=== PATIENT | female | born 1930 | race Caucasian/White ===

== ENCOUNTER 2016-06-28 21:00 | Inpatient (IN) | payer MEDICARE, BC ==
[2016-06-28] MEDS ORDERED: MORPHINE SULFATE 4 MG/ML SYRINGE IV STA (21:37)
[2016-06-28] MEDS ORDERED: ONDANSETRON 4 MG/2 ML VIAL IVP STA (21:51)
[2016-06-28] MEDS ORDERED: SODIUM CHLORIDE 0.9% 500 ML IV STA (21:55)
--- NOTE | 2016-06-28 22:54 | XR ---
EXAM: XR Left Femur, 2 Views CLINICAL HISTORY: Reason: fall TECHNIQUE: Frontal and lateral views of the left femur. COMPARISON: 06/28/2016 FINDINGS: Bones/joints: Acute overriding subtrochanteric fracture of the left proximal femur and fracture of the lesser trochanter. Left total knee arthroplasty. Soft tissues: Unremarkable. IMPRESSION: Acute overriding subtrochanteric fracture of the left proximal femur and fracture of the lesser trochanter.
[2016-06-28 22:57] LABS: Anisocytosis Moderate; CHCM 30.3; HCT 25.5 % (34.0-46.0); HDW 2.71; Hypochromasia Marked; MCH 25.8 pg (25.0-35.0); MCHC 31.2 g/dL (31.0-37.0); MCV 82.6 fL (80.0-100.0); Mean Platelet Volume 6.5; Microcytosis Slight; RBC 3.09 m/uL (3.80-5.40); RDW 21.1 % (11.5-15.5); WBC 7.7 k/uL (3.8-10.6); WBC (Perox) 7.52
--- NOTE | 2016-06-28 22:57 | XR ---
EXAM: XR Chest, 1 View CLINICAL HISTORY: Reason: operative clearance TECHNIQUE: Frontal view of the chest. COMPARISON: No relevant prior studies available. FINDINGS: Lungs: Nonspecific opacity in the right lower lung may be infectious or inflammatory. A pulmonary contusions is felt to be less likely. Bilateral pulmonary hyperinflation. Pleural space: Unremarkable. No pneumothorax. Heart: Stable cardiomediastinal silhouette. Mediastinum: See above. Bones/joints: Left lateral rib fractures. Right shoulder arthroplasty. Tubes, lines and devices: Stable left chest wall pacemaker. IMPRESSION: 1. Nonspecific opacity in the right lower lung may be infectious or inflammatory. A pulmonary contusions is felt to be less likely. Interval follow-up is recommended to document resolution. 2. Left lateral rib fractures. Consider correlation with point tenderness. No pneumothorax or significant pleural effusion.
[2016-06-28 22:58] LABS: Basophils % (A) 0 %; Eosinophils # (A) 0.2 k/uL (0-0.7); Eosinophils % (A) 2 %; Luc # (Auto) 0.19; Luc % (Auto) 3; Lymphocytes # (A) 0.7 k/uL (1.0-4.8); Lymphocytes % (A) 9 %; Monocytes # (A) 0.3 k/uL (0-1.0); Monocytes % (A) 4 %; Neutrophils # (A) 6.3 k/uL (1.3-7.7); Neutrophils % (A) 82 %
[2016-06-28 23:12] LABS: INR 1.2 (<1.1); Partial Thromboplastin Time 25.5 sec (22.0-30.0); Prothrombin Time 11.7 sec (9.0-12.0)
[2016-06-28 23:19] LABS: ALT 26 U/L (9-52); AST 21 U/L (14-36); Alkaline Phosphatase 63 U/L (38-126); Anion Gap 5 mmol/L; Blood Urea Nitrogen 18 mg/dL (7-17); Calcium 7.9 mg/dL (8.4-10.2); Carbon Dioxide 23 mmol/L (22-30); Chloride 107 mmol/L (98-107); Glucose 111 mg/dL (74-99); Non-African American GFR(MDRD) >60 (>60 ml/min/1.73 sqM); Potassium 4.3 mmol/L (3.5-5.1); Sodium 135 mmol/L (137-145); Total Bilirubin 0.5 mg/dL (0.2-1.3); Total Protein 5.3 g/dL (6.3-8.2)
[2016-06-28 23:22] LABS: Creatine Kinase 121 U/L (30-135)
[2016-06-28] MEDS ORDERED: ONDANSETRON 4 MG/2 ML VIAL IVP PRN (23:31)
[2016-06-28] MEDS ORDERED: NALOXONE 0.4 MG/ML 1 ML VIAL IV PRN (23:31)
[2016-06-28] MEDS ORDERED: LORazepam 2 MG/ML SYRINGE IV PRN (23:31)
[2016-06-28] MEDS ORDERED: ACETAMINOPHEN TAB 325 MG TAB PO PRN (23:31)
[2016-06-28] MEDS ORDERED: MORPHINE SULFATE 4 MG/ML SYRINGE IV PRN (23:31)
[2016-06-28 23:35] LABS: Troponin I <0.012 ng/mL (0.000-0.034)
--- NOTE | 2016-06-28 23:36 | ED ---
Lower Extremity Injury HPI - General Chief Complaint: Extremity Injury, Lower Stated Complaint: Fall/Leg injury Time Seen by Provider: 06/28/16 21:21 Source: patient, EMS Mode of arrival: EMS - Related Data Home Medications Medication Instructions Recorded Confirmed Atorvastatin [Lipitor] 10 mg PO DAILY 01/16/16 02/06/16 Enalapril [Vasotec] 10 mg PO PC-LUNCH 01/16/16 02/06/16 Pregabalin [Lyrica] 75 mg PO HS 01/16/16 02/06/16 Aspirin EC [Ecotrin Low Dose] 81 mg PO DAILY 02/06/16 02/06/16 metFORMIN HCL ER [Glucophage Xr] 500 mg PO DAILY 02/06/16 02/06/16 Previous Rx's Medication Instructions Recorded Acetaminophen Tab [Tylenol] 650 mg PO Q6HR PRN #0 tab 02/08/16 Aspirin 81 mg PO DAILY chew 02/08/16 Cephalexin [Keflex] 500 mg PO AC-TID #15 capsule 02/08/16 metFORMIN HCL [Glucophage] 500 mg PO AC-BRKFST tab 02/08/16 Allergies Allergy/AdvReac Type Severity Reaction Status Date / Time latex Allergy Rash/Hives Verified 06/28/16 21:11 Review of Systems ROS Statement: Those systems with pertinent positive or pertinent negative responses have been documented in the HPI. ROS Other: All systems not noted in ROS Statement are negative. Past Medical History Past Medical History: Diabetes Mellitus, Hyperlipidemia, Hypertension, Osteoarthritis (OA) History of Any Multi-Drug Resistant Organisms: None Reported Past Surgical History: Orthopedic Surgery, Pacemaker, Tonsillectomy Additional Past Surgical History / Comment(s): bilateral total knee replacements , total right shoulder replacement Past Anesthesia/Blood Transfusion Reactions: No Reported Reaction Type of Cardiac Device: Permanent Pacemaker Device Placement Date:: 01/17/2016 Past Psychological History: No Psychological Hx Reported Smoking Status: Former smoker Past Alcohol Use History: None Reported Past Drug Use History: None Reported - Past Family History Father Family Medical History: Myocardial Infarction ([place]) Additional Family Medical History / Comment(s): Dad passed of [place] Mother Family Medical History: Cancer Additional Family Medical History / Comment(s): Stomach [place] Sister(s) Family Medical History: Myocardial Infarction ([place]) Additional Family Medical History / Comment(s): Both sisters had [place] Course Vital Signs 06/28/16 06/28/16 21:08 22:31 Temperature 98.4 F Pulse Rate 61 71 Respiratory 18 18 Rate Blood Pressure 116/55 123/68 O2 Sat by Pulse 96 100 Oximetry Medical Decision Making - Lab Data Result diagrams: 06/28/16 22:39 06/28/16 22:39 Lab Results 06/28/16 06/28/16 06/28/16 Range/Units 22:39 22:39 22:39 WBC 7.7 (3.8-10.6) k/uL RBC 3.09 L (3.80-5.40) m/uL Hgb 8.0 L (11.4-16.0) gm/dL Hct 25.5 L (34.0-46.0) % MCV 82.6 (80.0-100.0) fL MCH 25.8 (25.0-35.0) pg MCHC 31.2 (31.0-37.0) g/dL RDW 21.1 H (11.5-15.5) % Plt Count 274 (150-450) k/uL Neutrophils % 82 % Lymphocytes % 9 % Monocytes % 4 % Eosinophils % 2 % Basophils % 0 % Neutrophils # 6.3 (1.3-7.7) k/uL Lymphocytes # 0.7 L (1.0-4.8) k/uL Monocytes # 0.3 (0-1.0) k/uL Eosinophils # 0.2 (0-0.7) k/uL Basophils # 0.0 (0-0.2) k/uL Hypochromasia Marked Anisocytosis Moderate Microcytosis Slight PT (9.0-12.0) sec INR (<1.1) APTT (22.0-30.0) sec Sodium 135 L (137-145) mmol/L Potassium 4.3 (3.5-5.1) mmol/L Chloride 107 (98-107) mmol/L Carbon Dioxide 23 (22-30) mmol/L Anion Gap 5 mmol/L BUN 18 H (7-17) mg/dL Creatinine 0.71 (0.52-1.04) mg/dL Est GFR (MDRD) Af Amer >60 (>60 ml/min/1.73 sqM) Est GFR (MDRD) Non-Af >60 (>60 ml/min/1.73 sqM) Glucose 111 H (74-99) mg/dL Calcium 7.9 L (8.4-10.2) mg/dL Total Bilirubin 0.5 (0.2-1.3) mg/dL AST 21 (14-36) U/L ALT 26 (9-52) U/L Alkaline Phosphatase 63 (38-126) U/L Total Creatine Kinase 121 (30-135) U/L CK-MB (CK-2) 2.0 (0.0-2.4) ng/mL CK-MB (CK-2) Rel Index 1.7 Troponin I <0.012 (0.000-0.034) ng/mL Total Protein 5.3 L (6.3-8.2) g/dL Albumin 2.9 L (3.5-5.0) g/dL Urine Color Urine Appearance (Clear) Urine pH (5.0-8.0) Ur Specific [place] (1.001-1.035) Urine Protein (Negative) Urine Glucose (UA) (Negative) Urine Ketones (Negative) Urine Blood (Negative) Urine Nitrite (Negative) Urine Bilirubin (Negative) Urine Urobilinogen (<2.0) mg/dL Ur Leukocyte Esterase (Negative) Urine RBC (0-5) /hpf Urine WBC (0-5) /hpf Ur Squamous Epith Cells (0-4) /hpf Urine Bacteria (None) /hpf Hyaline Casts (0-2) /lpf Urine Mucus (None) /hpf 06/28/16 06/28/16 Range/Units 22:39 22:39 WBC (3.8-10.6) k/uL RBC (3.80-5.40) m/uL Hgb (11.4-16.0) gm/dL Hct (34.0-46.0) % MCV (80.0-100.0) fL MCH (25.0-35.0) pg MCHC (31.0-37.0) g/dL RDW (11.5-15.5) % Plt Count (150-450) k/uL Neutrophils % % Lymphocytes % % Monocytes % % Eosinophils % % Basophils % % Neutrophils # (1.3-7.7) k/uL Lymphocytes # (1.0-4.8) k/uL Monocytes # (0-1.0) k/uL Eosinophils # (0-0.7) k/uL Basophils # (0-0.2) k/uL Hypochromasia Anisocytosis Microcytosis PT 11.7 (9.0-12.0) sec INR 1.2 (<1.1) APTT 25.5 (22.0-30.0) sec Sodium (137-145) mmol/L Potassium (3.5-5.1) mmol/L Chloride (98-107) mmol/L Carbon Dioxide (22-30) mmol/L Anion Gap mmol/L BUN (7-17) mg/dL Creatinine (0.52-1.04) mg/dL Est GFR (MDRD) Af Amer (>60 ml/min/1.73 sqM) Est GFR (MDRD) Non-Af (>60 ml/min/1.73 sqM) Glucose (74-99) mg/dL Calcium (8.4-10.2) mg/dL Total Bilirubin (0.2-1.3) mg/dL AST (14-36) U/L ALT (9-52) U/L Alkaline Phosphatase (38-126) U/L Total Creatine Kinase (30-135) U/L CK-MB (CK-2) (0.0-2.4) ng/mL CK-MB (CK-2) Rel Index Troponin I (0.000-0.034) ng/mL Total Protein (6.3-8.2) g/dL Albumin (3.5-5.0) g/dL Urine Color Yellow Urine Appearance Clear (Clear) Urine pH 6.5 (5.0-8.0) Ur Specific [place] 1.015 (1.001-1.035) Urine Protein Trace H (Negative) Urine Glucose (UA) Negative (Negative) Urine Ketones Trace H (Negative) Urine Blood Negative (Negative) Urine Nitrite Negative (Negative) Urine Bilirubin Negative (Negative) Urine Urobilinogen <2.0 (<2.0) mg/dL Ur Leukocyte Esterase Small H (Negative) Urine RBC 1 (0-5) /hpf Urine WBC 5 (0-5) /hpf Ur Squamous Epith Cells <1 (0-4) /hpf Urine Bacteria Rare H (None) /hpf Hyaline Casts 37 H (0-2) /lpf Urine Mucus Rare H (None) /hpf - EKG Data -: EKG Interpreted by Ia EKG shows normal: axis (Normal), intervals (The [place] interval is 168 ms. QRS duration 162 ms. QTC is 527 ms.) Rate: normal Interpretation: other (The 12-lead EKG shows what appears to be an atrial sensed and ventricular paced rhythm with a rate of 62 bpm) Disposition Clinical Impression: Closed fracture of left femur Disposition: ADMITTED IP TO THIS HOSP Condition: Poor Referrals: Fran Rodriguez MD [Primary Care Provider] - 1-2 days
[2016-06-28 23:49] LABS: Appearance,Urine Clear (Clear); Bacteria,Urine Rare /hpf; Bilirubin,Urine Negative (Negative); Glucose,Urine (UA) Negative (Negative); Ketones,Urine Trace (Negative); Leukocyte Esterase,Urine Small (Negative); Mucus,Urine Rare /hpf; Nitrite,Urine Negative (Negative); PH, Urine 6.5 (5.0-8.0); Particle Count 2752; Protein,Urine Trace (Negative); RBC,Urine 1 /hpf (0-5); Specific Gravity,Urine 1.015 (1.001-1.035); Squamous Epithelial Cell,Urine <1 /hpf (0-4); UA Billing (MACRO vs. MICRO) MICRO; Urobilinogen,Urine <2.0 mg/dL (<2.0); WBC,Urine 5 /hpf (0-5)
--- NOTE | 2016-06-28 23:57 | P.CONS ---
History of Present Illness - History of Present Illness Chief complaint: Fall with left hip area pain after a fall. History of present illness: Patient apparently was outside earlier today when she was opening a door that the when blew open causing her to fall and suffer a fracture to the left hip. The patient is a patient of Dr. Olivas for whom I am covering this weekend. Past medical history: Patient was hospitalized here back in January 2016. At that time she had a syncopal episode secondary to problems with a pacemaker that required surgical intervention. Also apparently with that fall she had a clavicular fracture. The patient also has history of hypertension and type 2 diabetes. History of cardiac arrhythmias requiring pacemaker in the first place. Previous surgical history that include bilateral knee arthroplasty. ALLERGIES: Latex with rash and hives Home medications: Metformin 500 mg daily. Lyrica 75 mg at bedtime Enalapril 10 mg daily Lipitor 10 mg daily Aspirin 81 mg daily Acetaminophen for pain. Review of systems: Patient declines any history of head injury. No visual disturbances or headache. She denies any chest pain or shortness of breath at this time. No nausea or vomiting. Denies any urinary or bowel symptoms. No leg edema. Social history: Patient is and lives with her spouse who has some dementia. She also has a son that lives out of town. No history of smoking or excessive alcohol usage. Family history: Noncontributory. One son in good health. Physical examination: Patient lying on the stretcher in the emergency room. Alert and oriented responding to questioning appropriately. Vital signs reveal temperature 98.4 with a pulse of 71 and respirations 18. Blood pressure is 123/68 and she is 100% saturated on 2 L nasal cannula. Neck supple without adenopathy or bruits. Lungs are clear to auscultation. Breasts and pelvic exam deferred. Heart tones regular without murmurs. Abdomen is soft and nontender without rebound guarding or masses detected. Extremities revealed some rotation of the left hip associated with pain. Neurologically she is alert. Cranial nerves intact. No focal weakness noted. Laboratory: White count is 7.7 with a hemoglobin of 8.0. MCV is low normal at 82. Platelet count of 274. INR 1.2. Sodium 135 with potassium 4.3. BUN of 18 with creatinine of 0.71 even her GFR greater than 60. Blood sugar of 111. Calcium 7.9. Troponin is less than 0.012 of human low at 2.9. Radiologic studies: 1. Chest x-ray showed nonspecific opacity right lower lung field. There also appeared to be some left lateral rib fractures. 2. Left proximal subtrochanteric fracture of the femur / lesser trochanter. Impressions: 1. Fall associated with left femur fracture. 2. Anemia. Last admission patient's hemoglobin was 9.9. This was in January 2016. Likely chronic anemia aggravated by some blood loss in the hip area. 3. History of previous pacemaker placement for arrhythmia. Likely sick sinus syndrome. 4. Diabetes 5. Hypertension 6. History of previous bilateral knee arthroplasties. Plans: Patient likely is a candidate for surgical repair of the left femur fracture. Orthopedics will be evaluating. Likely will need transfusion prior to surgery. EKG is pending. Past Medical History Past Medical History: Diabetes Mellitus, Hyperlipidemia, Hypertension, Osteoarthritis (OA) History of Any Multi-Drug Resistant Organisms: None Reported Past Surgical History: Orthopedic Surgery, Pacemaker, Tonsillectomy Additional Past Surgical History / Comment(s): bilateral total knee replacements , total right shoulder replacement Past Anesthesia/Blood Transfusion Reactions: No Reported Reaction Type of Cardiac Device: Permanent Pacemaker Device Placement Date:: 01/17/2016 Past Psychological History: No Psychological Hx Reported Smoking Status: Former smoker Past Alcohol Use History: None Reported Past Drug Use History: None Reported - Past Family History Father Family Medical History: Myocardial Infarction ([place]) Additional Family Medical History / Comment(s): Dad passed of [place] Mother Family Medical History: Cancer Additional Family Medical History / Comment(s): Stomach [place] Sister(s) Family Medical History: Myocardial Infarction ([place]) Additional Family Medical History / Comment(s): Both sisters had [place] Medications and Allergies Home Medications Medication Instructions Recorded Confirmed Type Atorvastatin [Lipitor] 10 mg PO DAILY 01/16/16 02/06/16 History Enalapril [Vasotec] 10 mg PO PC-LUNCH 01/16/16 02/06/16 History Pregabalin [Lyrica] 75 mg PO HS 01/16/16 02/06/16 History Aspirin EC [Ecotrin Low Dose] 81 mg PO DAILY 02/06/16 02/06/16 History metFORMIN HCL ER [Glucophage Xr] 500 mg PO DAILY 02/06/16 02/06/16 History Allergies Allergy/AdvReac Type Severity Reaction Status Date / Time latex Allergy Rash/Hives Verified 06/28/16 21:11 Physical Exam Vitals: Vital Signs Temp Pulse Resp BP Pulse Ox 06/28/16 22:31 71 18 123/68 100 06/28/16 21:08 98.4 F 61 18 116/55 96 Intake and Output 06/28/16 06/28/16 06/29/16 14:59 22:59 06:59 Other: Weight 66.224 kg Patient Weight 06/29/16 06:59 Weight 66.224 kg Results CBC & Chem 7: 06/28/16 22:39 06/28/16 22:39 Labs: Abnormal Lab Results - Last 24 Hours (Table) 06/28/16 06/28/16 Range/Units 22:39 22:39 RBC 3.09 L (3.80-5.40) m/uL Hgb 8.0 L (11.4-16.0) gm/dL Hct 25.5 L (34.0-46.0) % RDW 21.1 H (11.5-15.5) % Lymphocytes # 0.7 L (1.0-4.8) k/uL Sodium 135 L (137-145) mmol/L BUN 18 H (7-17) mg/dL Glucose 111 H (74-99) mg/dL Calcium 7.9 L (8.4-10.2) mg/dL Total Protein 5.3 L (6.3-8.2) g/dL Albumin 2.9 L (3.5-5.0) g/dL
[2016-06-29 01:34] VITALS: BMI 27.6
[2016-06-29] MEDS: SODIUM CHLORIDE 0.9% 1,000 ML IV SCH ×2 (02:25→21:21)
[2016-06-29] MEDS: HYDROmorphone 1 MG/ML 1 ML SYRINGE IV PRN ×4 (06:20→23:55)
[2016-06-29 07:01] LABS: Glucose,Whole Blood 183 mg/dL (75-99)
[2016-06-29] MEDS ORDERED: metFORMIN 500 MG TAB PO SCH ×2 (07:30)
[2016-06-29] MEDS ORDERED: CEPHALEXIN 500 MG CAP PO SCH (07:30)
[2016-06-29 07:39] LABS: Anisocytosis Moderate; Basophils % (A) 1 %; CH 25.2; CHCM 30.4; Eosinophils % (A) 1 %; HCT 22.6 % (34.0-46.0); HDW 2.77; HGB 7.1 gm/dL (11.4-16.0); Hypochromasia Moderate; Luc % (Auto) 4; Lymphocytes # (A) 0.7 k/uL (1.0-4.8); Lymphocytes % (A) 15 %; MCHC 31.3 g/dL (31.0-37.0); Mean Platelet Volume 6.8; Microcytosis Slight; Monocytes # (A) 0.3 k/uL (0-1.0); Monocytes % (A) 7 %; Neutrophils # (A) 3.5 k/uL (1.3-7.7); Neutrophils % (A) 73 %; RBC 2.72 m/uL (3.80-5.40); RDW 20.6 % (11.5-15.5); WBC 4.8 k/uL (3.8-10.6); WBC (Perox) 5.05
--- NOTE | 2016-06-29 08:38 | P.HPOR ---
History of Present Illness H&P Date: 06/29/16 Chief Complaint: Left leg pain The patient is an 86-year-old female with multiple medical problems including chronic anemia, diabetes, and having a pacemaker who sustained a low-energy fall yesterday when a door blew open. She had immediate pain in her left hip. She was brought to an outside emergency department where x-rays showed a significantly displaced subtrochanteric femur fracture. She also has a history of several total knee replacement surgeries including a revision all done by Dr. Sims. The ER here at [facility] accepted the patient as a transfer without contacting me. Apparently there was no attempt to contact Dr. Sims who has performed multiple procedures on this patient and is supposedly a hip and knee specialist. I was contacted while the patient was in the ER here and told she had a "intertrochanteric hip fracture" with no mention of the revision total knee prosthesis or that she had multiple surgeries on her knee. This morning she is complaining of isolated pain in her left hip. She says that she lives at home with her . She is a community ambulator at baseline. She denies any pre-existing left hip pain. Past Medical History Past Medical History: Diabetes Mellitus, Hyperlipidemia, Hypertension, Osteoarthritis (OA) History of Any Multi-Drug Resistant Organisms: None Reported Past Surgical History: Orthopedic Surgery, Pacemaker, Tonsillectomy Additional Past Surgical History / Comment(s): bilateral total knee replacements , total right shoulder replacement Past Anesthesia/Blood Transfusion Reactions: No Reported Reaction Type of Cardiac Device: Permanent Pacemaker Device Placement Date:: 01/17/2016 Past Psychological History: No Psychological Hx Reported Smoking Status: Former smoker Past Alcohol Use History: None Reported Past Drug Use History: None Reported - Past Family History Father Family Medical History: Myocardial Infarction ([place]) Additional Family Medical History / Comment(s): Dad passed of [place] Mother Family Medical History: Cancer Additional Family Medical History / Comment(s): Stomach [place] Sister(s) Family Medical History: Myocardial Infarction ([place]) Additional Family Medical History / Comment(s): Both sisters had [place] Medications and Allergies Home Medications Medication Instructions Recorded Confirmed Type Atorvastatin [Lipitor] 10 mg PO DAILY 01/16/16 02/06/16 History Enalapril [Vasotec] 10 mg PO PC-LUNCH 01/16/16 02/06/16 History Pregabalin [Lyrica] 75 mg PO HS 01/16/16 02/06/16 History Aspirin EC [Ecotrin Low Dose] 81 mg PO DAILY 02/06/16 02/06/16 History metFORMIN HCL ER [Glucophage Xr] 500 mg PO DAILY 02/06/16 02/06/16 History Allergies Allergy/AdvReac Type Severity Reaction Status Date / Time latex Allergy Rash/Hives Verified 06/29/16 02:59 Physical Examination The patient is resting comfortably in her bed. She is in moderate distress due to her left hip. She is alert and able to answer questions. Her head is normocephalic and atraumatic. She has no cervical spine tenderness. She demonstrates nonlabored breathing with symmetric chest expansion. Her abdomen is obese but nontender. She has no obvious deformities in her upper extremities and right lower extremities and no tenderness to palpation in her upper extremities and right lower extremity. A focused exam the left leg was conducted. On inspection of the left leg she has a healed anterior knee incision from revision total knee surgery. There are no open wounds over the lateral aspect of the hip. Her thigh is soft. She has no tenderness over her knee. She has no tenderness down her leg. Sensation is intact to light touch over the dorsum of the foot, first webspace, and plantar aspect of the foot. She is able to actively plantarflex and dorsiflex her ankle and her toes. She has no pain with passive range of motion of her toes. Results X-rays of the left hip from an outside hospital and full-length femur films from our ER show a long, displaced subtrochanteric femur fracture. There is a revision total knee prosthetic with a long stem, cement mantle and cement restrictor extending into the mid diaphysis of the femur. There do not appear to be any fractures around her total knee stem. - Labs Labs: Abnormal Lab Results - Last 24 Hours (Table) 06/29/16 06/29/16 Range/Units 07:00 07:03 RBC 2.72 L (3.80-5.40) m/uL Hgb 7.1 L (11.4-16.0) gm/dL Hct 22.6 L (34.0-46.0) % RDW 20.6 H (11.5-15.5) % POC Glucose (mg/dL) 183 H (75-99) mg/dL H & H 06/29/16 Range/Units 07:03 Hgb 7.1 L (11.4-16.0) gm/dL Hct 22.6 L (34.0-46.0) % Result Diagrams: 06/29/16 07:03 06/28/16 22:39 Assessment and Plan (1) Closed fracture of left femur Status: Acute Plan: The patient is an 86-year-old female with multiple medical problems and a very complicated left hip fracture. The patient has a displaced subtrochanteric femur fracture that ideally should be managed with a long cephalo-medullary device. Unfortunately the patient has a revision total knee replacement with a long stem extending into the femoral diaphysis that prevents the use a long nail. I had a lengthy discussion with the patient this morning on treatment options. My recommendation was to perform an open reduction of her subtrochanteric femur fracture followed by application of a cable to hold the reduction and then placement of an intermediate length cephalo-medullary device. We discussed the potential for fracture around the end of her nail given her poor bone quality and stress riser. She understands this is a potential complication and understands that she has a difficult problem to manage in regards to her hip fracture and revision total knee prosthesis. We discussed all of the potential risks and complications of surgery including but not limited to risk of anesthesia, risk of superficial infection, risk of deep infection, risk of delayed wound healing, risk of wound necrosis, risk of intraoperative fracture, risk of damage to local blood vessels or nerves, risk of postoperative fracture, risk of chronic pain, risk of chronic swelling, risk of inability to regain preinjury level of function, risk of inability to walk following surgery and risk of postoperative medical problems including DVT, PE, pneumonia, pressure sore, stroke, acute coronary event, urinary tract infection , and possibly . The patient understands that she has multiple medical problems that put her at a much higher risk of having surgery. The patient currently has a hemoglobin of 7.1 and is not cleared for surgery. We'll plan on taking the patient to surgery when she is medically optimized, likely tomorrow afternoon. In the interim she is to remain strictly bedrest with no weightbearing on her left leg.
[2016-06-29] MEDS: FAMOTIDINE 20 MG TAB PO SCH ×2 (08:50→20:35)
[2016-06-29] MEDS: diphenhydrAMINE 50 MG/ML 1 ML VIAL IVP PRN (08:50)
[2016-06-29] MEDS ORDERED: ATORVASTATIN 10 MG TAB PO SCH (09:00)
[2016-06-29 09:18] LABS: Manual Review Performed
[2016-06-29] MEDS ORDERED: FUROSEMIDE 10 MG/ML 2 ML VIAL IV ONE (09:24)
--- NOTE | 2016-06-29 10:26 | P.PN ---
Progress Note - Text Patient is an 86-year-old female of Dr. Rodriguez for whom I am covering today. The patient presented yesterday to the emergency room after a fall with a subsequent fracture to the left hip. Patient does have history of previous pacemaker placement. There is also history of diabetes and degenerative joint disease. Yesterday patient also was found to be anemic in the emergency room at 8.0 decreasing to 7.1 this morning. No sign of overt hemorrhage. Patient is alert and oriented. No complaints of chest pain or shortness of breath. Temperature is 96.8 with a pulse of 65 and respirations 16 and nonlabored. Blood pressure is 105/51 and she is 100% saturated on 3 L. Patient complains of being itchy but no definite rash seen. Lung and heart examination clear and regular. Abdomen is soft and nontender. No unusual distal edema. She is alert and oriented. Cranial nerves intact. No focal weakness. Laboratory results: As mentioned hemoglobin this morning is 7.1 with a white count of 4.8 and a platelet count of 273. Blood sugar was 183. Impressions and plans: The patient does have apparent chronic anemia. Further anemia now likely related to blood loss anemia secondary to the hip fracture. Patient will be typed and crossed for 2 units of blood and transfused today with Lasix. Follow- up hemoglobin to be done. Hopefully with further improvement and stabilization patient likely can proceed with the surgery per orthopedics tomorrow. Dr. Rodriguez to resume medical care tomorrow. We will hold the patient's lisinopril and have ordered a urine culture. Patient is at somewhat higher risk in light of her advanced age and comorbidities.
[2016-06-29 11:40] LABS: Glucose,Whole Blood 168 mg/dL (75-99)
[2016-06-29] MEDS ORDERED: LISINOPRIL 20 MG TAB PO SCH (13:30)
[2016-06-29 16:33] LABS: Glucose,Whole Blood 123 mg/dL (75-99)
[2016-06-29] MEDS: metFORMIN 500 MG TAB PO SCH (17:33)
[2016-06-29] MEDS: ATORVASTATIN 10 MG TAB PO SCH (20:34)
[2016-06-29 20:53] LABS: Glucose,Whole Blood 123 mg/dL (75-99)
[2016-06-29] MEDS: PREGABALIN 75 MG CAP PO SCH (21:15)
[2016-06-30] MEDS: diphenhydrAMINE 50 MG/ML 1 ML VIAL IVP PRN (05:58)
[2016-06-30 06:57] LABS: Glucose,Whole Blood 106 mg/dL (75-99)
[2016-06-30 07:12] LABS: Anion Gap 7 mmol/L; Blood Urea Nitrogen 17 mg/dL (7-17); Calcium 8.1 mg/dL (8.4-10.2); Carbon Dioxide 24 mmol/L (22-30); Chloride 105 mmol/L (98-107); Glucose 103 mg/dL (74-99); Non-African American GFR(MDRD) >60 (>60 ml/min/1.73 sqM); Potassium 4.4 mmol/L (3.5-5.1); Sodium 136 mmol/L (137-145)
[2016-06-30] MEDS: HYDROmorphone 1 MG/ML 1 ML SYRINGE IV PRN ×4 (07:23→23:32)
[2016-06-30] MEDS ORDERED: metFORMIN 500 MG TAB PO SCH (07:30)
[2016-06-30 07:36] LABS: Anisocytosis Slight; Basophils % (A) 1 %; CH 26.5; CHCM 31.7; Eosinophils # (A) 0.4 k/uL (0-0.7); Eosinophils % (A) 6 %; HCT 28.8 % (34.0-46.0); HDW 3.48; Hypochromasia Slight; Luc # (Auto) 0.25; Luc % (Auto) 4; Lymphocytes # (A) 0.8 k/uL (1.0-4.8); Lymphocytes % (A) 14 %; MCHC 32.2 g/dL (31.0-37.0); MCV 83.7 fL (80.0-100.0); Mean Platelet Volume 6.7; Microcytosis Slight; Monocytes # (A) 0.5 k/uL (0-1.0); Monocytes % (A) 8 %; Neutrophils % (A) 67 %; Poikilocytosis Slight; RBC 3.43 m/uL (3.80-5.40); RDW 19.7 % (11.5-15.5); WBC (Perox) 6.25
[2016-06-30 07:40] LABS: HGB 9.3 gm/dL (11.4-16.0)
[2016-06-30] MEDS: metFORMIN 500 MG TAB PO SCH ×2 (07:54→16:36)
[2016-06-30] MEDS: FAMOTIDINE 20 MG TAB PO SCH ×2 (07:54→23:33)
[2016-06-30 11:33] LABS: Glucose,Whole Blood 109 mg/dL (75-99)
[2016-06-30] MEDS ORDERED: IV FLUID CONTINUATION 1,000 ML IV ONE (16:15)
[2016-06-30] MEDS ORDERED: ceFAZolin 2 GM in SODIUM CHLORIDE 0.9% 100 ML IVPB STA (16:44)
[2016-06-30] MEDS: LACTATED RINGERS 1,000 ML IV ONE (18:02)
[2016-06-30] MEDS ORDERED: ePHEDrine 50 MG/ML 1 ML AMP ONE (18:04)
[2016-06-30] MEDS ORDERED: fentaNYL (PF) 50 MCG/ML 2 ML AMP ONE (18:04)
[2016-06-30] MEDS ORDERED: KETAMINE 10 MG/ML 20 ML VIAL ONE (18:04)
[2016-06-30] MEDS ORDERED: PROPOFOL 10 MG/ML 20 ML VIAL IV ONE (18:04)
[2016-06-30] MEDS ORDERED: MIDAZOLAM 2 MG/2 ML VIAL ONE (18:04)
[2016-06-30] MEDS ORDERED: LACTATED RINGERS 1,000 ML IV ONE (20:20)
[2016-06-30] MEDS ORDERED: NALOXONE 0.4 MG/ML 1 ML VIAL IV PRN (21:21)
[2016-06-30] MEDS ORDERED: HYDROcodone/APAP 5-325MG 1 EACH TAB PO PRN (21:21)
[2016-06-30 21:36] LABS: Glucose,Whole Blood 133 mg/dL (75-99)
--- NOTE | 2016-06-30 21:50 | P.OP ---
Date of Procedure: 06/30/16 Preoperative Diagnosis: 1. Closed left subtrochanteric femur fracture 2. History of left revision knee arthroplasty with stemmed, cemented femoral component and cement restrictor extending into the femoral diaphysis 3. Osteoporosis 4. Diabetes mellitus type 2 5. Urinary artery disease with a pacemaker 6. Chronic anemia Postoperative Diagnosis: Same Procedure(s) Performed: Operative fixation of left subtrochanteric femur fracture with cephalo- medullary device Implants: Synthes intermediate length TFN nail Anesthesia: spinal Surgeon: Iron Singh Sport Psychologist #1: Martinez Snyder Estimated Blood Loss (ml): 800 IV fluids (ml): 1,350 Urine output (ml): 50 Pathology: none sent Condition: stable Disposition: PACU Indications for Procedure: The patient is an 86-year-old female with multiple medical problems including coronary artery disease with a pacemaker, type 2 diabetes, and osteoporosis who sustained a low-energy fall this past Thursday resulting in an isolated left hip fracture. She was immediately painful left hip and was unable to walk. She was brought to an outside emergency department where x-rays were read as a hip fracture. The outside hospital she was at had no orthopedic coverage. The emergency department and [facility] excepted the patient without contacting me. The patient showed up into the emergency department and was admitted to the floor. I was contacted by the emergency department physician who stated the patient had an intertrochanteric hip fracture with no mention of her prior left knee surgeries. The patient had full length femur films taken in anticipation of lacing a long cephalo-medullary device. The x-rays showed a stemmed revision total knee replacement with a cement mantle extending into the femoral diaphysis. I discussed the case with my partners regarding different surgical fixation options including both operative fixation with an intramedullary hip screw versus a long plate with cables distally around the femoral component. Due to the patient's age and pre-existing medical problems I felt that an intramedullary hip screw would provide the most stable fixation without an extensive surgical approach. I do lengthy discussion with the patient on the potential risks and complications of surgery. She understands that she has a very complicated hip fracture and there is not that easy solution. We discussed potential risks and complications including but certainly not limited to risk of anesthesia, risk of superficial infection, risk of deep infection, risk of delayed wound healing, risk of wound necrosis, risk of intraoperative iatrogenic fracture, risk of postoperative fracture, risk of failure of hardware, risk of fracture nonunion, risk of fracture malunion, risk of damage to local nerves resulting in temporary or permanent numbness or motor weakness, risk of damage to blood vessels resulting in loss of blood supply to the leg, risk of chronic pain, risk of chronic swelling, risk of inability to ambulate, risk of inability to ambulate without assistive device, and risk of postoperative medical problems including DVT, PE, acute coronary event, stroke, pneumonia, urinary tract infection and possibly . The patient understands the need to problems associated with her fracture pattern and her total knee replacement. We discussed that there is a risk that she may fracture at tip of the nail due to the presence of a stress riser. She provided her verbal and written consent to go forward with surgery. She was seen by internal medicine and a verbal clearance was given by Dr. Rodriguez prior to surgery. Description of Procedure: The patient was identified in preoperative holding and the correct left leg was marked with my initials. All the patient's questions were answered and I verified the consent form was signed and represented my proposed surgery. The patient was then brought back to the operating room. She was placed in the lateral decubitus position while on her hospital bed and a spinal anesthetic was administered by anesthesia. The patient was then transferred onto a fracture table. Her right leg was flexed at the hip and knee and placed in a leg og that was well-padded particularly over the popliteal fossa and secured to the leg og with an Florencio wrap. Her left leg was placed in the boot of the fracture table which was well-padded and then secured with Velcro straps and an Florencio wrap. Her perineum was positioned over the peroneal post. Her torso was shifted to the left and her left arm was draped across her body to help facilitate entry point of our nail. Once the patient was secured in the fracture table a gentle closed reduction was attempted using a combination of longitudinal traction, rotation, and abduction and adduction. The fracture was unable to be reduced closed. The patient's left leg was prepped and draped in the standard sterile fashion. Prior to starting surgery timeout was performed identifying the correct patient, operative extremity, and procedure. I began by coming in with C-arm fluoroscopy and marking out the fracture site. A longitudinal incision centered over the lateral aspect of the femur was marked out centered over the fracture. Skin incision was made with a 15 blade scalpel and dissection was carried down carefully through the subcutaneous tissue using electrocautery. The IT band was identified and incised longitudinally in line with the skin incision. The vastus lateralis was then elevated and dissection was carried down to the lateral aspect of the femur. Perforating vessels were controlled with electrocautery. Large consolidating hematoma was removed from the fracture site. There was a long sub-trochanteric fracture. Using a combination of bone hooks and a ball spike pusher the fracture was manipulated until reduction was close. An unscrubbed cardiology physician assistant then made slight adjustments to rotation and the fracture site was clamped with a large Loo reduction clamp. C-arm was brought in to assess reduction. The reduction was attempted multiple times trying to get as close to an anatomic reduction as possible. Due to the configuration of the fracture and the long posterior lesser trochanter fracture I was unable to anatomically clamp the fracture as result decided not to place a cable across the fracture. Once the fracture was assessed to be in satisfactory position a small stab incision was made proximal to the greater trochanter in line with the femur. A guidewire was placed just medial to the tip of the greater trochanter on the AP view and centered with the femoral canal on the lateral view. The guidewire was then driven down to the level of lesser trochanter. A trocar and opening reamer were used to gain entrance to the femoral canal the tip of the greater trochanter. A ball-tipped guidewire was then placed through the previously drilled hole in the tip of the greater trochanter down across the fracture site until it was seated distally against the cement restrictor. An intermediate length 235 mm TFN nail was then dispensed. I verified that the targeting arm and trochars lined up with their appropriate slots on the nail. The nail was then inserted over the guidewire and seated with gentle taps of a mallet until it was fully seated. Progression of the nail was monitored with C-arm fluoroscopy. The tip of the nail rested just proximally to the cement restrictor. The trocar for the helical blade was placed through the targeting arm and down to the lateral aspect of the femur through the previously made incision for the open reduction. A guidewire was placed in the center the femoral head on the AP view and in the center posterior position on the lateral view. The guidewire was measured and then reamed. A 90 mm helical blade was dispensed and tapped into place. The car for the helical blade was then removed after the helical blade was locked proximally. The trocar for the distal interlocking screws placed the targeting arm and a drill was used to drill both cortices. The distal interlocking screw was just distal to the fracture and I was able to get both cortices on the distal shaft fragment. A 44 mm distal interlocking screw was placed. At this point the targeting arm was removed and final fluoroscopy shots were taken. I was happy with position of the hardware and our reduction. At this point both wounds were copiously irrigated. The IT band was closed with a running 0 Vicryl suture. The deep subcu was reapproximated using 0 Vicryl. The official subcu was reapproximated using 2-0 Vicryl. The skin was closed using agnieszka. The more proximal incision was closed with interrupted 2-0 Vicryl and the skin was closed with agnieszka. A sterile dressing consisting of Adaptic, 4 x 4, and sterile Tegaderms was applied. The drapes were taken down. The patient was carefully taken out of the fracture table and transferred onto the [facility]. Once the patient was in the [facility] her thigh and calf on the left leg were soft. Her toes were well perfused with brisk capillary refill. I verified with the behavioral health tech that all instrument sponge and sharp counts were correct. The patient was then brought to PACU. Plan: The patient is going to have her hemoglobin checked in PACU due to her pre -existing chronic anemia low hemoglobin on admission requiring transfusion and amount of blood loss during surgery. She will receive 2 doses of postoperative antibiotics. She is started on DVT prophylaxis with Lovenox. She is going to be admitted for selective care floor overnight for close monitoring. She is to remain strictly nonweightbearing on her left leg.
[2016-06-30 22:01] LABS: Anisocytosis Moderate; Basophils % (A) 0 %; CH 26.6; CHCM 31.9; Eosinophils # (A) 0.2 k/uL (0-0.7); Eosinophils % (A) 2 %; HCT 23.5 % (34.0-46.0); HDW 3.27; Hypochromasia Slight; Luc # (Auto) 0.21; Luc % (Auto) 2; Lymphocytes # (A) 0.6 k/uL (1.0-4.8); Lymphocytes % (A) 7 %; MCH 26.8 pg (25.0-35.0); MCV 83.7 fL (80.0-100.0); Mean Platelet Volume 7.2; Microcytosis Slight; Monocytes # (A) 0.5 k/uL (0-1.0); Monocytes % (A) 5 %; Neutrophils # (A) 8.2 k/uL (1.3-7.7); Neutrophils % (A) 84 %; RBC 2.81 m/uL (3.80-5.40); RDW 20.2 % (11.5-15.5); WBC 9.7 k/uL (3.8-10.6); WBC (Perox) 9.37
[2016-06-30 22:08] LABS: HGB 7.5 gm/dL (11.4-16.0)
--- NOTE | 2016-06-30 23:28 | PN ---
CHIEF COMPLAINT: Re-evaluation. HISTORY OF PRESENT ILLNESS: This elderly female, 86 years of age, was admitted to the hospital with a fractured left hip/femur. The patient is planned for surgery. The patient is actually doing fairly well. She was noted to be anemic. The patient does have chronic anemia with a suspected recent significant blood loss in the left hip area, as the patient has significant swelling in the left thigh area. She has no symptoms of chest pain or shortness of breath. The patient does have a history of recent pneumonia about 3 to 4 weeks ago. No further fever or leukocytosis. The patient's chest x-ray does show some infiltrate in the right lower lung area. REVIEW OF SYSTEMS: NEURO: Denies any headaches, dizziness. PSYCH: No anxiety. CARDIAC: Denies chest pain, angina, palpitation. RESPIRATORY: Denies shortness of breath. Does have some cough. No hemoptysis. GI: No nausea, vomiting, abdominal pain, diarrhea. : No symptoms of dysuria, hematuria. Patient has a Love catheter. EXTREMITIES: Pain in the left hip and upper thigh area. CONSTITUTIONAL: No fever or chills. PHYSICAL EXAMINATION: Pleasant female in no distress. VITAL SIGNS: Blood pressure 128/59, pulse 70, regular. Afebrile. Respiratory rate 20. HEENT: Normocephalic. NECK: Supple. No JVD. Chest examination is clear to auscultation with mild decreased air flow at the bases. CARDIAC: Distant heart sounds. S1, S2 with no gallops. Systolic murmur 2/6, apex. Patient does have a pacemaker. ABDOMEN: Soft. No palpable masses. Bowel sounds normal. No organomegaly. Extremities reveal edema, left thigh. Adequate pedal pulses. NEUROLOGIC: Awake, alert, oriented x3 with well-coordinated movements in both upper extremities. She has no tenderness of the left chest wall. LABORATORY ASSESSMENT: Chest x-ray which showed right lower lobe infiltrate, possible fracture left hip, left lower ribs; however, the ribs are not tender at all. Patient's hemoglobin is 9.3. ASSESSMENT: 1. Fracture, left hip area. 2. Anemia secondary to blood loss. 3. Sick sinus syndrome with a pacemaker. 4. Hypertension. 5. Diabetes mellitus, controlled. 6. Recent pneumonia. Chest x-ray shows residual infiltrate, right lung. PLAN: Continue present medical regimen. Patient is stable to undergo the planned surgical procedure. Patient has some increased risk due to her comorbid conditions; however, the patient has not too many alternatives except surgery for better recovery. Patient's condition discussed with the patient. She is going to require placement for rehab. The patient tells me her son wants to take her down to [place]. This is probably not going to be possible unless the patient is flown down by a private ambulance. Patient may benefit by going into a nursing facility here for rehab, and once she stabilizes, could subsequently go down to [place]. Patient's condition discussed with the patient.
[2016-06-30] MEDS: ATORVASTATIN 10 MG TAB PO SCH (23:33)
[2016-06-30] MEDS: PREGABALIN 75 MG CAP PO SCH (23:33)
[2016-06-30] MEDS: SODIUM CHLORIDE 0.9% 1,000 ML IV SCH (23:34)
[2016-07-01] MEDS: LACTATED RINGERS 1,000 ML IV ONE (00:03)
[2016-07-01] MEDS: ceFAZolin 2 GM in SODIUM CHLORIDE 0.9% 100 ML IVPB SCH ×2 (00:07→07:45)
[2016-07-01] MEDS: HYDROcodone/APAP 5-325MG 1 EACH TAB PO PRN ×4 (02:02→20:44)
[2016-07-01] MEDS: SODIUM CHLORIDE 0.9% 1,000 ML IV SCH (03:02)
[2016-07-01] MEDS: ENOXAPARIN 30 MG/0.3 ML SYRINGE SQ SCH (07:37)
[2016-07-01] MEDS: metFORMIN 500 MG TAB PO SCH ×2 (07:37→17:35)
[2016-07-01] MEDS: FAMOTIDINE 20 MG TAB PO SCH (07:37)
[2016-07-01 07:41] LABS: Glucose,Whole Blood 119 mg/dL (75-99)
--- NOTE | 2016-07-01 07:49 | XR ---
Limited left hip HISTORY: Left hip fracture 5 Intraoperative C-arm images document the procedure.
[2016-07-01 08:30] LABS: Anisocytosis Slight; Basophils % (A) 1 %; CH 26.6; CHCM 31.7; Eosinophils # (A) 0.1 k/uL (0-0.7); Eosinophils % (A) 2 %; HCT 21.2 % (34.0-46.0); HDW 3.26; Hypochromasia Slight; Luc # (Auto) 0.26; Luc % (Auto) 4; Lymphocytes # (A) 0.6 k/uL (1.0-4.8); Lymphocytes % (A) 11 %; MCH 26.8 pg (25.0-35.0); MCHC 31.8 g/dL (31.0-37.0); MCV 84.2 fL (80.0-100.0); Mean Platelet Volume 6.9; Microcytosis Slight; Monocytes # (A) 0.4 k/uL (0-1.0); Monocytes % (A) 8 %; Neutrophils # (A) 4.4 k/uL (1.3-7.7); Neutrophils % (A) 75 %; RBC 2.52 m/uL (3.80-5.40); RDW 19.4 % (11.5-15.5); WBC 5.9 k/uL (3.8-10.6); WBC (Perox) 5.82
[2016-07-01 08:33] LABS: HGB 6.7 gm/dL (11.4-16.0)
[2016-07-01 09:32] LABS: Anion Gap 4 mmol/L; Blood Urea Nitrogen 15 mg/dL (7-17); Calcium 7.6 mg/dL (8.4-10.2); Carbon Dioxide 26 mmol/L (22-30); Chloride 105 mmol/L (98-107); Glucose 115 mg/dL (74-99); Non-African American GFR(MDRD) >60 (>60 ml/min/1.73 sqM); Potassium 4.3 mmol/L (3.5-5.1); Sodium 135 mmol/L (137-145)
--- NOTE | 2016-07-01 10:21 | P.PN ---
Subjective Principal diagnosis: Status post TFN nail for left sub-trochanteric femur fracture Patient is pleasant 86 year old female seen at bedside this morning. She is postop day #1 from left TFN nail for left sub-trochanteric femur fracture performed by Dr. Singh. She is doing fairly well this morning during interview. She has some pain at the surgical site as expected but appears to be controlled with pain medication. Hemoglobin drawn this morning was 6.7 and packed red blood cells have been ordered. Vital signs have remained stable. She denies new lower extremity complaints including numbness, tingling or weakness. She denies calf pain. Review of systems is negative for fever, chills, chest pain, shortness of breath, nausea, vomiting, dizziness, headaches , slurred speech, abdominal pain or other. Objective - Vital Signs Vital signs: Vital Signs Temp 97.4 F L 07/01/16 07:30 Pulse 84 07/01/16 08:00 Resp 16 07/01/16 08:00 BP 138/72 07/01/16 07:30 Pulse Ox 99 07/01/16 07:30 Intake & Output 06/30/16 07/01/16 07/01/16 18:59 06:59 18:59 Intake Total 2050 1050 Output Total 850 1070 Balance 1200 -20 Weight 66.224 kg 66.224 kg Intake: IV 2050 300 Sodium Chloride 0.9% 1, 700 000 ml @ 20 mls/hr IV . Q24H DANNIE Rx#:[id number] Intake, IV Titration 750 Amount Sodium Chloride 0.9% 1, 750 000 ml @ 125 mls/hr IV . Q8H DANNIE Rx#:[id number] Output: Urine 850 270 Uretheral (Love) 850 Estimated Blood Loss 800 Other: Voiding Method Indwelling Catheter Indwelling Catheter Indwelling Catheter - Exam Inspection of the surgical wound is benign. There is no active bleeding, dehiscence or drainage. Neurovascular status is intact with the left lower extremity with motor and sensation to light touch. Calf is soft and nontender. Pulses are 2+ at dorsalis pedis and she has less than 2 second cap refill. Abdomen is soft and nontender. - Constitutional General appearance: Present: no acute distress - Psychiatric Psychiatric: Present: A&O x's 3, appropriate affect, intact judgment & insight - Labs CBC & Chem 7: 07/01/16 07:43 07/01/16 07:43 Labs: Abnormal Lab Results - Last 24 Hours (Table) 06/29/16 06/30/16 06/30/16 Range/Units 07:03 11:30 21:31 RBC 2.81 L (3.80-5.40) m/uL Hgb 7.5 L D (11.4-16.0) gm/dL Hct 23.5 L (34.0-46.0) % RDW 20.2 H (11.5-15.5) % Neutrophils # 8.2 H (1.3-7.7) k/uL Lymphocytes # 0.6 L (1.0-4.8) k/uL Sodium (137-145) mmol/L Glucose (74-99) mg/dL POC Glucose (mg/dL) 109 H (75-99) mg/dL Calcium (8.4-10.2) mg/dL Crossmatch See Detail 06/30/16 07/01/16 07/01/16 Range/Units 21:34 07:33 07:43 RBC 2.52 L (3.80-5.40) m/uL Hgb 6.7 L* (11.4-16.0) gm/dL Hct 21.2 L (34.0-46.0) % RDW 19.4 H (11.5-15.5) % Neutrophils # (1.3-7.7) k/uL Lymphocytes # 0.6 L (1.0-4.8) k/uL Sodium (137-145) mmol/L Glucose (74-99) mg/dL POC Glucose (mg/dL) 133 H 119 H (75-99) mg/dL Calcium (8.4-10.2) mg/dL Crossmatch 07/01/16 Range/Units 07:43 RBC (3.80-5.40) m/uL Hgb (11.4-16.0) gm/dL Hct (34.0-46.0) % RDW (11.5-15.5) % Neutrophils # (1.3-7.7) k/uL Lymphocytes # (1.0-4.8) k/uL Sodium 135 L (137-145) mmol/L Glucose 115 H (74-99) mg/dL POC Glucose (mg/dL) (75-99) mg/dL Calcium 7.6 L (8.4-10.2) mg/dL Crossmatch Microbiology - Last 24 Hours (Table) 06/29/16 18:00 Urine Culture - Final Urine,Catheterized Assessment and Plan (1) Closed fracture of left femur Narrative/Plan: She'll continue with routine postop orthopedic protocol including pain management, wound care, physical therapy, DVT prophylaxis and medical management. Packed red blood cells have been ordered and she is to receive transfusion for her low hemoglobin. We'll recheck in the morning. Expect that she will transfer to an extended care facility in the next 2 days. Status: Acute Time with Patient: Less than 30
[2016-07-01] MEDS: CALCIUM CARBONATE 500 MG CHEWABLE PO SCH ×3 (11:31→20:45)
[2016-07-01] MEDS: CHOLECALCIFEROL 1,000 UNIT TAB PO SCH (11:33)
[2016-07-01 11:42] LABS: Glucose,Whole Blood 170 mg/dL (75-99)
[2016-07-01 17:00] LABS: Glucose,Whole Blood 180 mg/dL (75-99)
--- NOTE | 2016-07-01 17:45 | P.PN ---
Subjective The patient has some discomfort in her left hip and thigh but it is currently controlled with her current pain regimen. She is complaining of discomfort and a burning sensation in her left fingers. She normally takes Lyrica and is requesting her dose of Lyrica. She denies chest pain or shortness of breath. She has no other complaints Objective - Vital Signs Vital signs: Vital Signs Temp 97.7 F 07/01/16 11:22 Pulse 84 07/01/16 15:39 Resp 16 07/01/16 15:39 BP 163/67 07/01/16 13:35 Pulse Ox 98 07/01/16 13:35 Intake & Output 06/30/16 07/01/16 07/01/16 18:59 06:59 18:59 Intake Total 2050 1050 710 Output Total 850 1070 Balance 1200 -20 710 Weight 66.224 kg 66.224 kg Intake: IV 2050 300 400 Sodium Chloride 0.9% 1, 700 400 000 ml @ 20 mls/hr IV . Q24H DANNIE Rx#:[id number] Intake, IV Titration 750 Amount Sodium Chloride 0.9% 1, 750 000 ml @ 125 mls/hr IV . Q8H DANNIE Rx#:[id number] Blood Product 310 Rc As-1 Unit 310 [id number] Output: Urine 850 270 Uretheral (Love) 850 Estimated Blood Loss 800 Other: Voiding Method Indwelling Catheter Indwelling Catheter Indwelling Catheter - Exam On exam the patient is in no apparent distress and is alert and able to answer questions. On examination of the patient's left leg her thigh is soft and compressible. She has a clean-appearing dressings over the lateral aspect of her hip with no saturated blood or drainage. Her foot is warm and well perfused with brisk capillary refill. She has a palpable dorsalis pedis pulse. She is able to actively plantarflex and dorsiflex her toes. Sensation is intact to light touch in the left foot. On examination of the patient's left hand there is no overlying swelling, ecchymosis, or discoloration of the skin. She has mild tenderness throughout the hand and fingers. - Labs CBC & Chem 7: 07/01/16 07:43 07/01/16 07:43 Labs: Abnormal Lab Results - Last 24 Hours (Table) 06/29/16 06/30/16 06/30/16 Range/Units 07:03 21:31 21:34 RBC 2.81 L (3.80-5.40) m/uL Hgb 7.5 L D (11.4-16.0) gm/dL Hct 23.5 L (34.0-46.0) % RDW 20.2 H (11.5-15.5) % Neutrophils # 8.2 H (1.3-7.7) k/uL Lymphocytes # 0.6 L (1.0-4.8) k/uL Sodium (137-145) mmol/L Glucose (74-99) mg/dL POC Glucose (mg/dL) 133 H (75-99) mg/dL Calcium (8.4-10.2) mg/dL Vitamin D 25-Hydroxy (30.0-100.0) ng/mL Crossmatch See Detail 07/01/16 07/01/16 07/01/16 Range/Units 07:33 07:43 07:43 RBC 2.52 L (3.80-5.40) m/uL Hgb 6.7 L* (11.4-16.0) gm/dL Hct 21.2 L (34.0-46.0) % RDW 19.4 H (11.5-15.5) % Neutrophils # (1.3-7.7) k/uL Lymphocytes # 0.6 L (1.0-4.8) k/uL Sodium 135 L (137-145) mmol/L Glucose 115 H (74-99) mg/dL POC Glucose (mg/dL) 119 H (75-99) mg/dL Calcium 7.6 L (8.4-10.2) mg/dL Vitamin D 25-Hydroxy (30.0-100.0) ng/mL Crossmatch 07/01/16 07/01/16 07/01/16 Range/Units 07:43 11:32 16:59 RBC (3.80-5.40) m/uL Hgb (11.4-16.0) gm/dL Hct (34.0-46.0) % RDW (11.5-15.5) % Neutrophils # (1.3-7.7) k/uL Lymphocytes # (1.0-4.8) k/uL Sodium (137-145) mmol/L Glucose (74-99) mg/dL POC Glucose (mg/dL) 170 H 180 H (75-99) mg/dL Calcium (8.4-10.2) mg/dL Vitamin D 25-Hydroxy 11.0 L (30.0-100.0) ng/mL Crossmatch Microbiology - Last 24 Hours (Table) 06/29/16 18:00 Urine Culture - Final Urine,Catheterized Assessment and Plan (1) Closed fracture of left femur Status: Acute Plan: Postoperative day #1 status post operative fixation of left subtrochanteric femur fracture with intramedullary hip screw. Acute on chronic anemia with a hemoglobin of 6.7 this morning status post transfusion 2 units packed red blood cells. 1. Strict nonweightbearing left leg 2. Mobilize up out of bed to chair is able 3. 2 doses postoperative antibiotics 4. DVT prophylaxis with Lovenox 30 mg daily 4 weeks 5. Dressing change postoperative day #2 6. Recheck hemoglobin 07/02/2016 a.m. 7. Bone health labs pending. Have started the patient on calcium carbonate 500 mg 3 times a day and vitamin D3 2000 units daily. 8. Appreciate internal medicine management of perioperative medical conditions. 9. Discharge planning
[2016-07-01 20:26] LABS: Glucose,Whole Blood 181 mg/dL (75-99)
[2016-07-01] MEDS: PREGABALIN 75 MG CAP PO SCH (20:45)
[2016-07-01] MEDS: ATORVASTATIN 10 MG TAB PO SCH (20:45)
[2016-07-02] MEDS: HYDROmorphone 1 MG/ML 1 ML SYRINGE IV PRN (01:34)
[2016-07-02] MEDS: SODIUM CHLORIDE 0.9% 1,000 ML IV SCH ×7 (04:40→15:22)
[2016-07-02 07:22] LABS: Anisocytosis Slight; CH 27.3; CHCM 31.8; HCT 20.4 % (34.0-46.0); HDW 3.49; Hypochromasia Slight; MCH 27.3 pg (25.0-35.0); MCHC 31.7 g/dL (31.0-37.0); MCV 86.1 fL (80.0-100.0); Mean Platelet Volume 7.2; Microcytosis Slight; Poikilocytosis Slight; RBC 2.37 m/uL (3.80-5.40); RDW 19.6 % (11.5-15.5); WBC 6.5 k/uL (3.8-10.6)
[2016-07-02 07:28] LABS: HGB 6.5 gm/dL (11.4-16.0)
[2016-07-02] MEDS: ENOXAPARIN 30 MG/0.3 ML SYRINGE SQ SCH (07:31)
[2016-07-02] MEDS: metFORMIN 500 MG TAB PO SCH ×2 (07:31→17:30)
[2016-07-02] MEDS: FAMOTIDINE 20 MG TAB PO SCH (07:31)
[2016-07-02] MEDS: CALCIUM CARBONATE 500 MG CHEWABLE PO SCH ×3 (07:31→20:36)
[2016-07-02 07:33] LABS: Glucose,Whole Blood 122 mg/dL (75-99)
[2016-07-02 07:33] LABS: Anion Gap 3 mmol/L; Blood Urea Nitrogen 13 mg/dL (7-17); Calcium 7.3 mg/dL (8.4-10.2); Carbon Dioxide 25 mmol/L (22-30); Chloride 103 mmol/L (98-107); Glucose 104 mg/dL (74-99); Non-African American GFR(MDRD) >60 (>60 ml/min/1.73 sqM); Potassium 4.3 mmol/L (3.5-5.1); Sodium 131 mmol/L (137-145)
--- NOTE | 2016-07-02 08:26 | PN ---
CHIEF COMPLAINT: Re-evaluation. HISTORY OF PRESENT ILLNESS: An 86-year-old, status post left hip ORIF. The patient is doing relatively well this morning. REVIEW OF SYSTEMS: NEURO: Denies any headaches, dizziness. PSYCH: No anxiety. CARDIAC: No chest pain, angina, palpitation. RESPIRATORY: No shortness of breath. Does have some cough. No hemoptysis. GI: No nausea, vomiting, abdominal pain, diarrhea. No bowel movement. : No symptoms of dysuria, hematuria. Has IDC. EXTREMITIES: Pain in the left hip area and left wrist. The left wrist and hand feels like tingling sensation. CONSTITUTIONAL: No fever or chills. PHYSICAL EXAMINATION: Pleasant female in no distress. Vital signs reveal temperature 97.4, pulse 84, respirations 18, blood pressure 138/72. HEENT: Normocephalic. NECK: No JVD. Chest is clear to auscultation. CARDIAC: Normal S1, S2. No gallops. Systolic murmur 2/6 left sternal border. Regular rhythm. ABDOMEN: Soft. Bowel sounds present. EXTREMITIES: Reveal trace edema left leg. NEUROLOGICALLY: Awake, alert, oriented with well coordinated movements. Left face mild swelling with no erythema or warmth. Mild tenderness. Neurologically awake, alert, oriented x3 with well coordinated movements in both upper extremities. LABORATORY ASSESSMENT: Hemoglobin of 6.7, white count 5.9, platelets 250. Electrolytes, renal functions normal. Blood sugar was 119. Vitamin D level was low at 11. ASSESSMENT: 1. Anemia secondary to acute blood loss. 2. Diabetes mellitus. 3. Recent right lower lobe pneumonia with persisting infiltrate right lower lobe. 4. Hypertension. 5. Status post left hip open reduction and internal fixation. PLAN: The patient is stable. Continue present medical regimen. Patient was to be transfused 1 unit of packed red cells. Patient's condition discussed with the patient. I also called the patient's son who is an anesthesiologist in [place] and given update about the patient's condition. Patient is going to require rehabilitation. Prognosis remains guarded.
[2016-07-02] MEDS ORDERED: MAGNESIUM HYDROXIDE 2,400 MG/10 ML CUP PO PRN (09:48)
[2016-07-02] MEDS ORDERED: BISACODYL 10 MG SUPP RECTAL STA (09:51)
--- NOTE | 2016-07-02 10:57 | P.PN ---
Subjective No acute events overnight. Patient's hemoglobin this morning was again low despite 2 units transfused yesterday. Internal medicine is transfusing a unit of packed red cells this morning. The patient denies chest pain or shortness of breath. She denies feeling lightheaded or having palpitations. Her main complaint this morning his burning pain in her left hand. She attributes it to her shoulder. Her pain in the left hand is worse than her thigh. Her thigh pain is well-controlled. Her only complaint in the left leg is that she can't straighten her leg. Objective - Vital Signs Vital signs: Vital Signs Temp 98.5 F 07/02/16 07:00 Pulse 89 07/02/16 07:00 Resp 18 07/02/16 07:00 BP 141/66 07/02/16 07:00 Pulse Ox 97 07/02/16 07:00 Intake & Output 07/01/16 07/02/16 07/02/16 18:59 06:59 18:59 Intake Total 710 1500 480 Output Total 700 400 Balance 710 800 80 Weight 66.224 kg Intake: IV 400 Sodium Chloride 0.9% 1, 400 000 ml @ 20 mls/hr IV . Q24H [facility] Rx#:[id number] Intake, IV Titration 1500 Amount Sodium Chloride 0.9% 1, 1500 000 ml @ 125 mls/hr IV . Q8H [facility] Rx#:[id number] Oral 480 Blood Product 310 Rc As-1 Unit 310 [id number] Output: Urine 700 400 Uretheral (Love) 700 400 Other: Voiding Method Indwelling Catheter Indwelling Catheter - Exam On exam the patient is in no apparent distress and is alert and able to answer questions. On examination of the patient's left leg her dressing is clean and dry with no saturated blood. Her left thigh is swollen but is soft and easily compressible. She has no calf tenderness. Entire left leg is warm and well perfused with brisk capillary refill. She has a palpable herself pedis pulse the left foot. Sensation is intact to light touch in the left foot. She is able to actively plantarflex and dorsiflex her ankles and toes. She has no pain with passive range of motion of her toes. On examination of the patient's left upper extremity there are no obvious deformities. There is no overlying swelling, ecchymosis or discoloration of the skin. There is no area of focal tenderness in her hand. Sensation is intact to light touch throughout the left hand. She is motor intact in the distribution of the median ulnar and radial nerves. In with passive range of motion of her fingers. - Labs CBC & Chem 7: 07/02/16 06:38 07/02/16 06:38 Labs: Abnormal Lab Results - Last 24 Hours (Table) 06/29/16 07/01/16 07/01/16 Range/Units 07:03 07:43 11:32 RBC (3.80-5.40) m/uL Hgb (11.4-16.0) gm/dL Hct (34.0-46.0) % RDW (11.5-15.5) % Sodium (137-145) mmol/L Glucose (74-99) mg/dL POC Glucose (mg/dL) 170 H (75-99) mg/dL Calcium (8.4-10.2) mg/dL Vitamin D 25-Hydroxy 11.0 L (30.0-100.0) ng/mL Crossmatch See Detail 07/01/16 07/01/16 07/02/16 Range/Units 16:59 20:23 06:38 RBC 2.37 L (3.80-5.40) m/uL Hgb 6.5 L* (11.4-16.0) gm/dL Hct 20.4 L (34.0-46.0) % RDW 19.6 H (11.5-15.5) % Sodium (137-145) mmol/L Glucose (74-99) mg/dL POC Glucose (mg/dL) 180 H 181 H (75-99) mg/dL Calcium (8.4-10.2) mg/dL Vitamin D 25-Hydroxy (30.0-100.0) ng/mL Crossmatch 07/02/16 07/02/16 Range/Units 06:38 07:29 RBC (3.80-5.40) m/uL Hgb (11.4-16.0) gm/dL Hct (34.0-46.0) % RDW (11.5-15.5) % Sodium 131 L (137-145) mmol/L Glucose 104 H (74-99) mg/dL POC Glucose (mg/dL) 122 H (75-99) mg/dL Calcium 7.3 L (8.4-10.2) mg/dL Vitamin D 25-Hydroxy (30.0-100.0) ng/mL Crossmatch Assessment and Plan (1) Closed fracture of left femur Status: Acute Plan: Postoperative day #2 status post operative fixation of left subtrochanteric femur fracture with intermediate length nail. Acute on chronic anemia with a hemoglobin of 6.7 this morning. Acute burning pain in left hand. 1. Continue strict nonweightbearing left lower extremity. Mobilize up out of bed to chair is able. 2. Appreciate internal medicine assistance with perioperative medical management including management of anemia. 3. We'll check x-rays of the left shoulder and hand. The patient's complaint of burning pain this consistent with possible radiculopathy. If the patient's x -rays are normal we'll consult my spine partner Dr. Barrera. 4. Awaiting bone health labs. 5. Discharge planning.
[2016-07-02 11:14] LABS: Glucose,Whole Blood 131 mg/dL (75-99)
--- NOTE | 2016-07-02 11:37 | XR ---
EXAMINATION TYPE: XR hand complete LT DATE OF EXAM: 07/02/2016 11:26 AM COMPARISON: NONE HISTORY: Pain second digit TECHNIQUE: Three views are submitted. FINDINGS: The osseous structures are intact. Diffuse osteopenia noted. Arthropathy of the PIP and DIP joints of all digits the most marked changes involving the PIP joint of the second and fifth digit. Correlate for erosive osteoarthritis.. IMPRESSION: 1. No definite acute fracture or dislocation if symptoms persist, follow-up study in 7 to 10 days wo uld be suggested. 2. Post arthritic changes
--- NOTE | 2016-07-02 11:39 | XR ---
EXAMINATION TYPE: XR shoulder complete LT DATE OF EXAM: 07/02/2016 11:26 AM COMPARISON: NONE HISTORY: Pain TECHNIQUE: Three views are submitted. FINDINGS: Sclerotic changes and deformity of the distal left clavicle suggest healing left clavicular fracture. Pacemaker seen which does obscure some bony detail. Diffuse osteopenia noted. IMPRESSION: 1. Deformity of the distal left clavicle suggests healing left clavicular fracture also noted on prev ious chest x-ray 06/28/2016
--- NOTE | 2016-07-02 12:31 | FL ---
Fluoroscopy HISTORY: Pain 2.43 minutes fluoroscopy time supplied to the referring clinician. 5 intraoperative C-arm images doc ument the procedure. See dictated report from orthopedic surgery.
[2016-07-02] MEDS: CHOLECALCIFEROL 1,000 UNIT TAB PO SCH (15:20)
[2016-07-02] MEDS: HYDROcodone/APAP 5-325MG 1 EACH TAB PO PRN (15:53)
[2016-07-02 16:53] LABS: Glucose,Whole Blood 156 mg/dL (75-99)
[2016-07-02] MEDS ORDERED: ERGOCALCIFEROL 50,000 UNIT CAP PO SCH (17:00)
[2016-07-02 17:28] LABS: Glucose,Whole Blood 138 mg/dL (75-99)
--- NOTE | 2016-07-02 18:37 | PN ---
DATE OF SERVICE: 07/02/2016 CHIEF COMPLAINT: Re-evaluation. HISTORY OF PRESENT ILLNESS: This elderly female, status post fracture left hip and undergone ORIF. She is actually doing fairly well. She is sitting up in bed eating her breakfast. REVIEW OF SYSTEMS: NEURO: Denies any headaches, dizziness. PSYCH: No anxiety, depression. CARDIAC: No chest pain, angina, palpitation. RESPIRATORY: No shortness breath. Mild cough. No hemoptysis. GI: No nausea, vomiting, abdominal pain, diarrhea. : No symptoms of dysuria, hematuria, urgency, frequency. Has IDC. EXTREMITIES: Denies pain or edema. CONSTITUTIONAL: No fever or chills. HEMATOLOGIC: Anemia. No external bleeding. The patient's blood loss felt to be at the site of fracture and surgery. SKIN: No breakdown. GI: No nausea, vomiting, abdominal pain. No bowel movement. PHYSICAL EXAMINATION: Pleasant female in no distress. Vital signs stable as recorded. HEENT: Normocephalic. NECK: No JVD. Chest is clear to auscultation. CARDIAC: Normal S1, S2 with no gallops. Systolic murmur 2/6 left sternal border. Regular rhythm. The patient has a pacemaker. ABDOMEN: Soft, no palpable masses. Bowel sounds normal. No organomegaly. No abdominal bruits. Extremities revealed especially in the left leg. The patient has significant edema of the left thigh and spilling over onto the left knee area. Neurologically otherwise awake, alert, oriented with well-coordinated movements in both upper extremities. Laboratory assessment was again: CBC showed a hemoglobin of 6.5. ASSESSMENT: 1. Anemia secondary to acute blood loss. 2. Hypertension, controlled. 3. Status post left hip open reduction and internal fixation. 4. History of diabetes mellitus. 5. Pacemaker status. PLAN: The patient is stable. Continue present medical regimen. The patient's condition discussed with the patient. Patient's condition also discussed with the son over the phone, the son is a physician. Did mention that the patient's chest x-ray shows mild infiltrate, which I feel is residual, not still clear from the pneumonia she was diagnosed 3 weeks ago. She should have subsequent x-rays done to follow up until the x-ray clears. Patient's prognosis remains guarded. The patient's condition was discussed with the patient and son. I will be out of town and the patient will be followed by Dr. Briggs in my absence. This has been informed to the son too.
[2016-07-02 20:04] LABS: Glucose,Whole Blood 224 mg/dL (75-99)
[2016-07-02] MEDS: PREGABALIN 75 MG CAP PO SCH (20:35)
[2016-07-02] MEDS: ATORVASTATIN 10 MG TAB PO SCH (20:35)
[2016-07-02 21:39] LABS: Anisocytosis Slight; Basophils # (A) 0.1 k/uL (0-0.2); Basophils % (A) 1 %; CH 28.9; CHCM 33.7; Eosinophils # (A) 0.1 k/uL (0-0.7); Eosinophils % (A) 1 %; HCT 24.6 % (34.0-46.0); HDW 3.79; Luc # (Auto) 0.32; Luc % (Auto) 4; Lymphocytes # (A) 0.4 k/uL (1.0-4.8); Lymphocytes % (A) 5 %; MCH 28.9 pg (25.0-35.0); MCHC 33.6 g/dL (31.0-37.0); MCV 86.1 fL (80.0-100.0); Mean Platelet Volume 6.8; Monocytes # (A) 0.6 k/uL (0-1.0); Monocytes % (A) 8 %; Neutrophils # (A) 5.9 k/uL (1.3-7.7); Neutrophils % (A) 80 %; Poikilocytosis Slight; RBC 2.85 m/uL (3.80-5.40); RDW 18.2 % (11.5-15.5); WBC 7.3 k/uL (3.8-10.6); WBC (Perox) 7.18
[2016-07-02 21:43] LABS: HGB 8.3 gm/dL (11.4-16.0)
[2016-07-03 07:06] LABS: Glucose,Whole Blood 115 mg/dL (75-99)
[2016-07-03 07:33] LABS: Anisocytosis Slight; Basophils % (A) 0 %; CH 28.4; CHCM 33.6; Eosinophils # (A) 0.3 k/uL (0-0.7); Eosinophils % (A) 5 %; HCT 21.7 % (34.0-46.0); HDW 3.79; HGB 7.2 gm/dL (11.4-16.0); Hypochromasia Slight; Luc # (Auto) 0.23; Luc % (Auto) 4; Lymphocytes # (A) 0.6 k/uL (1.0-4.8); Lymphocytes % (A) 9 %; MCH 28.4 pg (25.0-35.0); MCHC 33.4 g/dL (31.0-37.0); MCV 85.1 fL (80.0-100.0); Mean Platelet Volume 7.2; Monocytes # (A) 0.4 k/uL (0-1.0); Monocytes % (A) 7 %; Neutrophils # (A) 4.4 k/uL (1.3-7.7); Neutrophils % (A) 74 %; Poikilocytosis Slight; RBC 2.55 m/uL (3.80-5.40); RDW 18.5 % (11.5-15.5); WBC 5.9 k/uL (3.8-10.6); WBC (Perox) 5.86
--- NOTE | 2016-07-03 08:11 | P.PN ---
Progress Note - Text The patient is being seen in follow-up for Dr. Rodriguez in his absence. The patient is an 86-year-old female who has had left hip surgery. She does have underlying anemia secondary to blood loss along with history of hypertension and diabetes and also a previous pacemaker placement. The patient is sitting up in bed. Denies any chest pain or shortness of breath. She is alert and oriented. Pleasant. Last vital signs reveal temperature 98.4 with a pulse of 90 respirations 16 and blood pressure 134/63. She is 93% saturated on room air. Lung and heart examination is clear and regular. Abdomen is nontender. No focal neurological deficits. Laboratory results: White count is 5.9. Hemoglobin is dropped to 7.2 with a platelet count of 258. Blood sugars 115 this morning Impressions and plans: Patient is doing fairly well with her underlying hip fracture and anemia. We will add iron replacement. Follow-up CBC in the morning. Apparently discharge planning for extended care facility. Patient is not having any unusual chest pain or shortness of breath and will try to hold off on further transfusions unless she does not stabilize at this level or has further symptomatology with therapy. We will also check her occult blood.
[2016-07-03] MEDS: metFORMIN 500 MG TAB PO SCH ×2 (08:20→18:11)
[2016-07-03] MEDS: ENOXAPARIN 30 MG/0.3 ML SYRINGE SQ SCH (08:20)
[2016-07-03] MEDS: FAMOTIDINE 20 MG TAB PO SCH (08:20)
[2016-07-03] MEDS: CALCIUM CARBONATE 500 MG CHEWABLE PO SCH ×3 (08:21→21:27)
[2016-07-03] MEDS: CHOLECALCIFEROL 1,000 UNIT TAB PO SCH (08:22)
--- NOTE | 2016-07-03 09:15 | P.PN ---
Subjective Principal diagnosis: Status post TFN nail for left sub-trochanteric femur fracture Patient is pleasant 86 year old female seen at bedside this morning. She is postop day #3 from left TFN nail for left sub-trochanteric femur fracture performed by Dr. Singh. . She has some pain at the surgical site as expected but appears to be controlled with oral pain medication. We have been monitoring her H/H. Vital signs have remained stable. She denies new lower extremity complaints including numbness, tingling or weakness. She denies calf pain. Review of systems is negative for fever, chills, chest pain, shortness of breath, nausea, vomiting, dizziness, headaches, slurred speech, abdominal pain or other. Objective - Vital Signs Vital signs: Vital Signs Temp 97.7 F 07/03/16 07:00 Pulse 90 07/03/16 07:00 Resp 18 07/03/16 07:00 BP 124/58 07/03/16 07:00 Pulse Ox 96 07/03/16 07:00 Intake & Output 07/02/16 07/03/16 07/03/16 18:59 06:59 18:59 Intake Total 1190 480 Output Total 400 2000 Balance 790 -1520 Intake: Intake, IV Titration 400 Amount Sodium Chloride 0.9% 1, 400 000 ml @ 100 mls/hr IV . Q10H [facility] Rx#:[id number] Oral 480 480 Blood Product 310 Rc As-1 Unit 310 [id number] Output: Urine 400 2000 Uretheral (Love) 400 2000 Other: Voiding Method Indwelling Catheter - Exam Inspection of the surgical wound is benign. There is no active bleeding, dehiscence or drainage. Tegaderm is in place. There is a small blister at the edge of the tegaderm that is benign appearing. Neurovascular status is intact with the left lower extremity with motor and sensation to light touch. Calf is soft and nontender. Pulses are 2+ at dorsalis pedis and she has less than 2 second cap refill. Abdomen is soft and nontender. - Constitutional General appearance: Present: no acute distress - Psychiatric Psychiatric: Present: A&O x's 3, appropriate affect, intact judgment & insight - Labs CBC & Chem 7: 07/03/16 06:43 07/02/16 06:38 Labs: Abnormal Lab Results - Last 24 Hours (Table) 06/29/16 07/02/16 07/02/16 Range/Units 07:03 11:02 16:35 RBC (3.80-5.40) m/uL Hgb (11.4-16.0) gm/dL Hct (34.0-46.0) % RDW (11.5-15.5) % Lymphocytes # (1.0-4.8) k/uL POC Glucose (mg/dL) 131 H 156 H (75-99) mg/dL Crossmatch See Detail 07/02/16 07/02/16 07/02/16 Range/Units 17:25 20:02 21:22 RBC 2.85 L (3.80-5.40) m/uL Hgb 8.3 L D (11.4-16.0) gm/dL Hct 24.6 L (34.0-46.0) % RDW 18.2 H (11.5-15.5) % Lymphocytes # 0.4 L (1.0-4.8) k/uL POC Glucose (mg/dL) 138 H 224 H (75-99) mg/dL Crossmatch 07/03/16 07/03/16 Range/Units 06:43 06:46 RBC 2.55 L (3.80-5.40) m/uL Hgb 7.2 L (11.4-16.0) gm/dL Hct 21.7 L (34.0-46.0) % RDW 18.5 H (11.5-15.5) % Lymphocytes # 0.6 L (1.0-4.8) k/uL POC Glucose (mg/dL) 115 H (75-99) mg/dL Crossmatch Assessment and Plan (1) Closed fracture of left femur Narrative/Plan: She'll continue with routine postop orthopedic protocol including pain management, wound care, physical therapy, DVT prophylaxis and medical management. Strict nonweightbearing LLE. Monitor wound blister. HgB is 7.2 today where IM is managing and monitoring. We'll recheck HgB again in the morning. If stable, expect that she will transfer to an extended care facility in the next 1-2 days. Status: Acute Time with Patient: Less than 30
[2016-07-03 11:58] LABS: Glucose,Whole Blood 130 mg/dL (75-99)
[2016-07-03] MEDS: SODIUM CHLORIDE 0.9% 1,000 ML IV SCH (13:26)
[2016-07-03] MEDS: FERROUS SULFATE 325 MG TAB PO SCH (13:26)
[2016-07-03 16:48] LABS: Glucose,Whole Blood 180 mg/dL (75-99)
[2016-07-03] MEDS: HYDROcodone/APAP 5-325MG 1 EACH TAB PO PRN (18:59)
[2016-07-03] MEDS: ATORVASTATIN 10 MG TAB PO SCH (21:27)
[2016-07-03] MEDS: PREGABALIN 75 MG CAP PO SCH (21:27)
[2016-07-03 21:30] VITALS: RESP 16
[2016-07-03] MEDS: diphenhydrAMINE 50 MG/ML 1 ML VIAL IVP PRN (23:33)
[2016-07-04] MEDS: HYDROcodone/APAP 5-325MG 1 EACH TAB PO PRN ×2 (02:27→14:03)
[2016-07-04 07:18] VITALS: BP 138/63; PULSE 79; TEMP 97.2
--- NOTE | 2016-07-04 07:41 | P.PN ---
Progress Note - Text The patient is a 86-year-old female who has had a previous left hip surgery. I am following the patient for her primary care physician Dr. Rodriguez in his absence. The patient has had some postop blood loss anemia along with history of hypertension and diabetes and a previous cardiac pacemaker placement in the past. Patient aroused in bed. In no acute distress. No complaints of chest pain or unusual shortness of breath. No nausea or vomiting. She states she had a fairly normal bowel movement yesterday. Last vital signs reveal a temperature 97.2 with a pulse of 79 and respirations nonlabored at 16. Blood pressure 138/63 and she is 96% saturated on room air. Lung and heart examination is clear and regular. Abdomen is soft and nontender. No unusual distal edema. Cranial nerves intact and no focal weakness noted. Laboratory results: Hemoglobin is pending from this morning. Occult blood was negative in the stool. Her blood sugars ranging from 115 to 180. Impressions and plans: Anticipating her discharge to extended care facility soon. Arrangements apparently are in process. Awaiting results of CBC from this morning. Further recommendations to follow.
[2016-07-04 07:49] LABS: Anion Gap 5 mmol/L; Blood Urea Nitrogen 12 mg/dL (7-17); Carbon Dioxide 28 mmol/L (22-30); Chloride 101 mmol/L (98-107); Glucose 84 mg/dL (74-99); Non-African American GFR(MDRD) >60 (>60 ml/min/1.73 sqM); Potassium 4.1 mmol/L (3.5-5.1); Sodium 134 mmol/L (137-145)
[2016-07-04 08:08] LABS: Anisocytosis Slight; Basophils % (A) 0 %; CH 28.2; CHCM 32.7; Eosinophils # (A) 0.6 k/uL (0-0.7); Eosinophils % (A) 10 %; HCT 22.5 % (34.0-46.0); HGB 7.3 gm/dL (11.4-16.0); Hypochromasia Slight; Luc # (Auto) 0.23; Luc % (Auto) 4; Lymphocytes # (A) 0.7 k/uL (1.0-4.8); Lymphocytes % (A) 12 %; MCHC 32.3 g/dL (31.0-37.0); MCV 86.7 fL (80.0-100.0); Mean Platelet Volume 6.8; Monocytes # (A) 0.5 k/uL (0-1.0); Monocytes % (A) 8 %; Neutrophils # (A) 3.8 k/uL (1.3-7.7); Neutrophils % (A) 65 %; Poikilocytosis Slight; RBC 2.59 m/uL (3.80-5.40); RDW 18.5 % (11.5-15.5); WBC 5.8 k/uL (3.8-10.6); WBC (Perox) 5.73
[2016-07-04] MEDS: CALCIUM CARBONATE 500 MG CHEWABLE PO SCH (09:25)
[2016-07-04] MEDS: metFORMIN 500 MG TAB PO SCH (09:26)
[2016-07-04] MEDS: FAMOTIDINE 20 MG TAB PO SCH (09:27)
[2016-07-04] MEDS: ENOXAPARIN 30 MG/0.3 ML SYRINGE SQ SCH (09:27)
--- NOTE | 2016-07-04 10:55 | P.DS ---
Providers Date of admission: 06/28/16 23:32 Expected date of discharge: 07/04/16 Attending physician: Iron Singh Primary care physician: Fran Rodriguez - Discharge Diagnosis(es) (1) Closed fracture of left femur Patient is an 86-year-old female was admitted through the ER on 06/28/2016 after a fall home suffering a left hip fracture. X-ray showed a paty- trochanteric fracture where it was recommended she undergo surgical intervention for repair. She went to the OR on 06/30/2016 where an open reduction internal fixation with intramedullary nail and hip screw were performed by Dr. Singh. She tolerated the procedure well without complication. Her postoperative hospital course has remained with out complication other than postop anemia. She has been transfused packed red blood cells and her hemoglobin has remained stable. On day of discharge she is afebrile, vital signs stable, labs within acceptable ranges, wound is benign, neurovascular status intact, abdomen is soft nontender, calf is soft and nontender, tolerating by mouth meds and diet, voiding without difficulty, positive flatus, denies new complaints. Review of systems is negative for fever , chills, chest pain, shortness breath, nausea, vomiting, headaches, dizziness, numbness, calf pain, bowel pain, tingling, slurred speech or other. Current Visit: Yes Status: Acute Priority: Medium Procedures: ORIF left subtrochanteric hip fracture Patient Condition at Discharge: Stable Plan - Discharge Summary New Discharge Prescriptions: HYDROcodone/APAP 7.5-325MG [[place] 7.5-325] 1 - 2 tab PO Q6HR PRN #60 tab PRN Reason: Pain Discharge Medication List Atorvastatin [Lipitor] 10 mg PO DAILY 01/16/16 [History] Enalapril [Vasotec] 10 mg PO DAILY 01/16/16 [History] Pregabalin [Lyrica] 75 mg PO HS 01/16/16 [History] metFORMIN HCL ER [Glucophage Xr] 500 mg PO DAILY 02/06/16 [History] Aspirin 81 mg PO DAILY chew 02/08/16 [Rx] HYDROcodone/APAP 7.5-325MG [[place] 7.5-325] 1 - 2 tab PO Q6HR PRN #60 tab [Rx] Follow up Appointment(s)/Referral(s): Fran Rodriguez MD [Primary Care Provider] - 1-2 days (Patient to schedule follow up appointment after discharge from ECF.) Iron Singh MD [Medical Doctor] - 07/14/16 9:50 am Activity/Diet/Wound Care/Special Instructions: [facility] for rehab Non weightbearing left lower extremity Keep wound clean and dry F/U with Dr. Singh, [phone] Discharge Disposition: TRANSFER TO SNF/ECF
[2016-07-04 11:25] LABS: Glucose,Whole Blood 143 mg/dL (75-99)
--- NOTE | 2016-07-04 13:19 | XR ---
EXAMINATION TYPE: XR chest 2V DATE OF EXAM: 07/04/2016 1:08 PM COMPARISON: 02/07/2016 TECHNIQUE: PA and lateral views submitted. HISTORY: ECF placement FINDINGS: Bilateral pleural effusions are seen. Age-indeterminate compression deformity in the upper thoracic s pine. Diffuse osteopenia and cardiac device. Hyperinflation suggests COPD. Diffuse interstitial patte rn noted. Previous trauma left clavicle and postoperative change right shoulder. IMPRESSION: 1. Correlate for CHF with bilateral infiltrate and small effusions.
[2016-07-04 13:30] LABS: Vitamin B12 401 pg/mL
[2016-07-04] MEDS: CHOLECALCIFEROL 1,000 UNIT TAB PO SCH (14:03)
[2016-07-04] MEDS: FERROUS SULFATE 325 MG TAB PO SCH (14:03)
== END 2016-07-04 16:00 | DRG 481 ==
LOC: EC 21:00 → 3SUR 23:32
PROVIDERS: ADMIT Orthopaedic Surgery; ATTEND Orthopaedic Surgery
PROC: 30233N1 Transfusion of Nonautologous Red Blood Cells into Peripheral Vein, Percutaneous Approach (ICD-10-PCS; 2016-06-29)
PROC: 0QS706Z Reposition Left Upper Femur with Intramedullary Internal Fixation Device, Open Approach (ICD-10-PCS; principal; 2016-06-30 09:30)
DX: S72.22XA Displaced subtrochanteric fracture of left femur, initial encounter for closed fracture (principal); D62 Acute posthemorrhagic anemia; I49.5 Sick sinus syndrome; E11.9 Type 2 diabetes mellitus without complications; I10 Essential (primary) hypertension; D50.0 Iron deficiency anemia secondary to blood loss (chronic); M54.10 Radiculopathy, site unspecified; R26.2 Difficulty in walking, not elsewhere classified; M19.90 Unspecified osteoarthritis, unspecified site; I25.10 Atherosclerotic heart disease of native coronary artery without angina pectoris; R01.1 Cardiac murmur, unspecified; M81.0 Age-related osteoporosis without current pathological fracture; R91.8 Other nonspecific abnormal finding of lung field; E78.5 Hyperlipidemia, unspecified; Z87.891 Personal history of nicotine dependence; Z96.611 Presence of right artificial shoulder joint; Z95.0 Presence of cardiac pacemaker; Z96.653 Presence of artificial knee joint, bilateral; Z82.49 Family history of ischemic heart disease and other diseases of the circulatory system; Z80.0 Family history of malignant neoplasm of digestive organs; Z79.899 Other long term (current) drug therapy; Z79.84 Long term (current) use of oral hypoglycemic drugs; Z87.01 Personal history of pneumonia (recurrent); Z87.81 Personal history of (healed) traumatic fracture; Z91.040 Latex allergy status; Z79.82 Long term (current) use of aspirin; Z71.3 Dietary counseling and surveillance; W01.0XXA Fall on same level from slipping, tripping and stumbling without subsequent striking against object, initial encounter; Y93.89 Activity, other specified; Y92.008 Other place in unspecified non-institutional (private) residence as the place of occurrence of the external cause
CPT/HCPCS: 36415; 71010; 71020; 73502; 80048; 80053; 81001; 82272; 82306; 82550; 82553; 82607; 84484; 85025; 85027; 85610; 85730; 86850; 86900; 86901; 86920; 87086; 93005; 94760; 96374; 96375; 99285